=== PATIENT | male | born 1945 | race Caucasian/White ===

== ENCOUNTER 2021-11-06 04:32 | Inpatient (IN) | payer MEDICARE ==
[2021-11-06 05:22] LABS: #Basophils 0.1 10x3/uL (0.0-0.2); #Eosinphils 0.2 10x3/uL (0.0-0.5); #Monocytes 0.8 10x3/uL (0.0-1.1); #Neutrophils 4.2 10x3/uL (1.5-8.4); %Basophils 0.6 % (0.0-2.0); %Eosinophils 2.6 % (0.0-6.0); %Lymphocytes 31.7 % (18.0-47.0); %Monocytes 10.3 % (0.0-10.0); %Neutrophils 54.5 % (40.0-75.0); Hemoglobin 14.2 g/dL (13.5-17.5); Mean Corpuscular HGB CONC 31.2 g/dL (32.0-36.0); Mean Corpuscular Hemoglobin 28.9 pg (27.0-33.0); Mean Corpuscular Volume 92.5 fl (81.2-95.1); Mean Platelet Volume 10.5 fl (7.4-10.4); Platelet Count 255 10x3/uL (150-450); RBC Distribution Width 13.2 % (11.5-14.5); Red Blood Cell (RBC) Count 4.92 10x6/uL (4.32-5.72); White Blood Cell (WBC) Count 7.7 10x3/uL (3.5-10.5)
[2021-11-06 05:58] LABS: ALT (SGPT) 21 U/L (8-55); AST (SGOT) 20 U/L (5-34); Albumin 4.2 g/dL (3.4-4.8); Alkaline Phosphatase 44 U/L (40-110); Anion Gap 16 mmol/L (10-20); BUN (Urea Nitrogen) 22 mg/dL (8.4-25.7); Bilirubin, Total 0.5 mg/dL (0.2-1.2); Calc. Creatinine Clearance 0 mL/min (70-130); Carbon Dioxide 23 mmol/L (23-31); Chloride 106 mmol/L (98-107); Globulin 2.8 g/dL (2.4-3.5); Glucose 130 mg/dL (83-110); Potassium 4.2 mmol/L (3.5-5.1); Sodium 141 mmol/L (136-145)
[2021-11-06] MEDS ORDERED: Nitroglycerin 0.4 MG TAB (25 Tab Bottle) SL PRN (07:18)
[2021-11-06 08:00] LABS: Cardiac Risk 2.7 (Less than 4.5); Cholesterol 92 mg/dl (< 200 Desired); HDL Cholesterol 34 mg/dL (>60 Neg Risk); LDL Cholesterol, Calculated 29 mg/dL; Magnesium 2.1 mg/dL (1.6-2.6); Triglycerides 144 mg/dL (Less than 150)
[2021-11-06 08:06] LABS: Troponin I 0.051 ng/mL (< 0.028)
[2021-11-06] MEDS ORDERED: metFORMIN 500 MG TAB PO SCH (09:00)
[2021-11-06] MEDS: Nitroglycerin 2% Ointment 1 INCH/1 GM Packet TOP SCH ×3 (09:56→23:50)
[2021-11-06] MEDS: Ubidecarenone 50 MG CAP PO SCH (09:57)
[2021-11-06] MEDS: Aspirin 81 mg Enteric Coated Tablet PO SCH (09:58)
[2021-11-06] MEDS: Ascorbic Acid 500 mg Chewable Tablet PO SCH (09:58)
[2021-11-06] MEDS: Famotidine 20 MG TAB PO SCH ×2 (09:58→21:08)
[2021-11-06] MEDS: Lisinopril 2.5 MG TAB PO SCH (09:58)
[2021-11-06] MEDS: Multivit, Therapeutic 1 TAB PO SCH (09:58)
[2021-11-06] MEDS: Ezetimibe 10 MG TAB PO SCH (09:59)
[2021-11-06] MEDS: Clopidogrel Bisulfate 75 MG TAB PO SCH (09:59)
[2021-11-06] MEDS: Lisinopril 5 MG TAB PO SCH (09:59)
[2021-11-06] MEDS: Enoxaparin Sodium 40 MG/0.4 ML SYRINGE SC SCH (09:59)
[2021-11-06] MEDS: Acetylcysteine 800 MG/4 ML VIAL PO SCH (10:01)
[2021-11-06 11:23] LABS: Troponin I 0.088 ng/mL (< 0.028)
[2021-11-06 13:15] LABS: Hemoglobin A1c 5.7 % (4.0-6.0)
[2021-11-06 19:25] LABS: SARS-CoV-2 PCR by NAA Not Detected (NotDetected)
[2021-11-06] MEDS: Melatonin 3 MG TAB PO SCH (21:08)
[2021-11-06] MEDS: Rosuvastatin 20 MG TAB PO SCH (21:09)
[2021-11-07 06:29] LABS: #Basophils 0.1 10x3/uL (0.0-0.2); #Eosinphils 0.2 10x3/uL (0.0-0.5); #Monocytes 0.8 10x3/uL (0.0-1.1); #Neutrophils 4.6 10x3/uL (1.5-8.4); %Basophils 0.6 % (0.0-2.0); %Eosinophils 2.3 % (0.0-6.0); %Lymphocytes 31.1 % (18.0-47.0); %Monocytes 10.1 % (0.0-10.0); %Neutrophils 55.5 % (40.0-75.0); Mean Corpuscular HGB CONC 30.9 g/dL (32.0-36.0); Mean Corpuscular Hemoglobin 28.7 pg (27.0-33.0); Mean Corpuscular Volume 92.9 fl (81.2-95.1); Mean Platelet Volume 10.9 fl (7.4-10.4); Platelet Count 246 10x3/uL (150-450); RBC Distribution Width 13.4 % (11.5-14.5); Red Blood Cell (RBC) Count 4.53 10x6/uL (4.32-5.72); White Blood Cell (WBC) Count 8.2 10x3/uL (3.5-10.5)
[2021-11-07 06:34] LABS: INR-International Normal Ratio 0.9; Prothrombin Time 10.3 sec (9.5-12.1)
[2021-11-07] MEDS: Ubidecarenone 50 MG CAP PO SCH (06:48)
[2021-11-07] MEDS: Lisinopril 5 MG TAB PO SCH (06:49)
[2021-11-07] MEDS: Lisinopril 2.5 MG TAB PO SCH (06:50)
[2021-11-07] MEDS: Ezetimibe 10 MG TAB PO SCH (06:51)
[2021-11-07] MEDS: Multivit, Therapeutic 1 TAB PO SCH (06:51)
[2021-11-07] MEDS: Famotidine 20 MG TAB PO SCH ×2 (06:51→20:32)
[2021-11-07] MEDS: Clopidogrel Bisulfate 75 MG TAB PO SCH (06:51)
[2021-11-07] MEDS: Ascorbic Acid 500 mg Chewable Tablet PO SCH (06:51)
[2021-11-07] MEDS: Aspirin 81 mg Enteric Coated Tablet PO SCH (06:52)
[2021-11-07 06:53] LABS: ALT (SGPT) 18 U/L (8-55); AST (SGOT) 17 U/L (5-34); Albumin 3.7 g/dL (3.4-4.8); Alkaline Phosphatase 32 U/L (40-110); Anion Gap 13 mmol/L (10-20); BUN (Urea Nitrogen) 18 mg/dL (8.4-25.7); Bilirubin, Total 0.5 mg/dL (0.2-1.2); Calc. Creatinine Clearance 0 mL/min (70-130); Calcium 8.5 mg/dL (7.8-10.44); Carbon Dioxide 24 mmol/L (23-31); Chloride 106 mmol/L (98-107); Globulin 2.5 g/dL (2.4-3.5); Glucose 120 mg/dL (83-110); Potassium 4.4 mmol/L (3.5-5.1); Protein, Total 6.2 g/dL (5.8-8.1); Sodium 139 mmol/L (136-145)
[2021-11-07] MEDS: Nitroglycerin 2% Ointment 1 INCH/1 GM Packet TOP SCH ×2 (06:53→16:29)
[2021-11-07] MEDS: Acetylcysteine 800 MG/4 ML VIAL PO SCH (06:53)
[2021-11-07 08:01] VITALS: BMI 30.1
[2021-11-07] MEDS ORDERED: Nitroglycerin 50 MG/250 ML BOT 0 ML ONE (09:03)
[2021-11-07] MEDS ORDERED: Heparin 10,000 UNITS/ 10 ML VIAL ONE (09:03)
[2021-11-07] MEDS ORDERED: Adenosine 6 MG/2 ML VIAL ONE (09:04)
[2021-11-07] MEDS ORDERED: Lidocaine 1% (PF) 30 ML VIAL ONE (09:08)
[2021-11-07] MEDS ORDERED: Midazolam HCl 2 mg/2 ml Vial ONE ×2 (09:09→11:19)
[2021-11-07] MEDS ORDERED: Fentanyl 100 MCG/2 ML VIAL ONE (09:09)
[2021-11-07] MEDS: Enoxaparin Sodium 40 MG/0.4 ML SYRINGE SC SCH (09:47)
[2021-11-07] MEDS ORDERED: Ondansetron PF 4 MG/2 ML Vial ONE (11:17)
[2021-11-07] MEDS ORDERED: Nitroglycerin 0.4 MG TAB (25 Tab Bottle) SL PRN (11:32)
[2021-11-07] MEDS ORDERED: Atropine Sulfate 0.4 mg/1 ml Vial ONE ×2 (11:38)
[2021-11-07] MEDS ORDERED: Sodium Chloride 0.9% 1,000 ML IV SCH (11:45)
[2021-11-07] MEDS ORDERED: Clopidogrel Bisulfate 300 MG TAB ONE (12:03)
[2021-11-07] MEDS ORDERED: ceFAZolin 2 GM/Dextrose 50 ML IVPB ONE (12:55)
[2021-11-07] MEDS: Melatonin 3 MG TAB PO SCH (20:33)
[2021-11-07] MEDS: Rosuvastatin 20 MG TAB PO SCH (20:33)
[2021-11-08] MEDS: Nitroglycerin 2% Ointment 1 INCH/1 GM Packet TOP SCH ×2 (00:25→09:26)
[2021-11-08 05:10] LABS: ALT (SGPT) 16 U/L (8-55); AST (SGOT) 18 U/L (5-34); Albumin 3.9 g/dL (3.4-4.8); Alkaline Phosphatase 36 U/L (40-110); Anion Gap 13 mmol/L (10-20); BUN (Urea Nitrogen) 14 mg/dL (8.4-25.7); Bilirubin, Total 0.4 mg/dL (0.2-1.2); Calc. Creatinine Clearance 93 mL/min (70-130); Carbon Dioxide 26 mmol/L (23-31); Chloride 104 mmol/L (98-107); Globulin 2.9 g/dL (2.4-3.5); Glucose 125 mg/dL (83-110); Potassium 4.2 mmol/L (3.5-5.1); Protein, Total 6.8 g/dL (5.8-8.1); Sodium 139 mmol/L (136-145)
[2021-11-08 05:12] LABS: #Basophils 0.1 10x3/uL (0.0-0.2); #Eosinphils 0.2 10x3/uL (0.0-0.5); #Monocytes 0.9 10x3/uL (0.0-1.1); #Neutrophils 5.6 10x3/uL (1.5-8.4); %Basophils 0.6 % (0.0-2.0); %Eosinophils 2.5 % (0.0-6.0); %Lymphocytes 24.1 % (18.0-47.0); %Monocytes 10.2 % (0.0-10.0); %Neutrophils 62.4 % (40.0-75.0); Hemoglobin 13.8 g/dL (13.5-17.5); Mean Corpuscular HGB CONC 31.1 g/dL (32.0-36.0); Mean Corpuscular Hemoglobin 28.8 pg (27.0-33.0); Mean Corpuscular Volume 92.5 fl (81.2-95.1); Mean Platelet Volume 10.5 fl (7.4-10.4); Platelet Count 252 10x3/uL (150-450); RBC Distribution Width 13.4 % (11.5-14.5); White Blood Cell (WBC) Count 8.9 10x3/uL (3.5-10.5)
[2021-11-08 09:25] VITALS: BP 164/70; TEMP 96.2
[2021-11-08] MEDS: Enoxaparin Sodium 40 MG/0.4 ML SYRINGE SC SCH (09:25)
[2021-11-08] MEDS: Clopidogrel Bisulfate 75 MG TAB PO SCH (09:25)
[2021-11-08] MEDS: Lisinopril 2.5 MG TAB PO SCH (09:25)
[2021-11-08] MEDS: Ubidecarenone 50 MG CAP PO SCH (09:25)
[2021-11-08] MEDS: Acetylcysteine 800 MG/4 ML VIAL PO SCH (09:25)
[2021-11-08] MEDS: Ascorbic Acid 500 mg Chewable Tablet PO SCH (09:25)
[2021-11-08] MEDS: Ezetimibe 10 MG TAB PO SCH (09:25)
[2021-11-08] MEDS: Aspirin 81 mg Enteric Coated Tablet PO SCH (09:25)
[2021-11-08] MEDS: Famotidine 20 MG TAB PO SCH (09:26)
[2021-11-08] MEDS: Lisinopril 5 MG TAB PO SCH (09:26)
[2021-11-08] MEDS: Multivit, Therapeutic 1 TAB PO SCH (09:26)
== END 2021-11-08 12:00 | disposition home or self-care (01) | DRG 247 ==
LOC: CSHERS 04:32 → SUATTDRO 04:32 → CSHTELE 08:17 → OBSVTOIN 11-08 10:44
PROVIDERS: ADMIT Family Medicine; ATTEND Family Medicine
PROC: 027135Z Dilation of Coronary Artery, Two Arteries with Two Drug-eluting Intraluminal Devices, Percutaneous Approach (ICD-10-PCS; principal; 2021-11-07)
PROC: 4A023N7 Measurement of Cardiac Sampling and Pressure, Left Heart, Percutaneous Approach (ICD-10-PCS; 2021-11-07)
PROC: B2151ZZ Fluoroscopy of Left Heart using Low Osmolar Contrast (ICD-10-PCS; 2021-11-07)
PROC: B2111ZZ Fluoroscopy of Multiple Coronary Arteries using Low Osmolar Contrast (ICD-10-PCS; 2021-11-07)
DX: I21.4 Non-ST elevation (NSTEMI) myocardial infarction (principal); I50.32 Chronic diastolic (congestive) heart failure; I25.110 Atherosclerotic heart disease of native coronary artery with unstable angina pectoris; Z20.822 Contact with and (suspected) exposure to COVID-19; I11.0 Hypertensive heart disease with heart failure; E74.39 Other disorders of intestinal carbohydrate absorption; E78.2 Mixed hyperlipidemia; R73.03 Prediabetes; I49.3 Ventricular premature depolarization; K21.9 Gastro-esophageal reflux disease without esophagitis; Z95.5 Presence of coronary angioplasty implant and graft; Z88.8 Allergy status to other drugs, medicaments and biological substances; Z79.82 Long term (current) use of aspirin; Z79.84 Long term (current) use of oral hypoglycemic drugs; Z79.899 Other long term (current) drug therapy; Z90.89 Acquired absence of other organs; Z87.891 Personal history of nicotine dependence
CPT/HCPCS: 36415; 71045; 80053; 80061; 83036; 83735; 84443; 84484; 85025; 85610; 92928; 92978; 93005; 93010; 93306; 93458; 94760; 96372; 97139; 99152; 99153; C1725; C1753; C1874; C1887; C9600; G0378; J0153; J0461; J0690; J1644; J1650; J2001; J2250; J2405; J3010; J7050; U0003; U0005